=== PATIENT | female | born 1945 | race Native Hawaiian/Other Pacific Islander ===

== ENCOUNTER 2018-11-11 15:17 | Outpatient (CLI) | payer OTHER ==
[2018-11-11 16:09] LABS: PLATELET COUNT 186 K/uL (152-353)
== END 2018-11-11 22:51 | disposition home or self-care (01) ==
LOC: LAB 15:17
PROVIDERS: Internal Medicine
DX: Z79.899 Other long term (current) drug therapy (principal); D64.9 Anemia, unspecified; R53.83 Other fatigue
CPT/HCPCS: 82728; 82746; 83540; 83550; 85027

== ENCOUNTER 2018-11-12 13:32 | Outpatient (CLI) | payer OTHER | END 2018-11-12 22:16 | disposition home or self-care (01) | LOC: LAB 13:32 | DX: Z79.899 Other long term (current) drug therapy (principal); D64.89 Other specified anemias; R53.83 Other fatigue | CPT/HCPCS: 82272 ==